=== PATIENT | female | born 1940 | race Caucasian/White ===

== ENCOUNTER 2017-07-12 16:08 | Inpatient (IN) | payer MEDICARE ==
[~2017-07-12] VITALS: Ht 160 cm; Wt 72.8 kg
[2017-07-12 16:15] VITALS: BP 133/78
[2017-07-12] MEDS ORDERED: Sodium Chloride 500ML 500 ML IV ONE (16:40)
[2017-07-12 17:38] LABS: BASOPHILS % (AUTO) 0.8 % (0.0-2.0); EOSINOPHILS % (AUTO) 0.1 % (0.0-3.0); LYMPHOCYTES % (AUTO) 10.4 % (20.0-45.0); MEAN CORPUSCULAR HGB CONC 33.9 G/DL (32.0-36.0); MEAN CORPUSCULAR VOLUME 88 FL (80-99); MEAN PLATELET VOLUME 5.6 FL (6.5-10.1); MONOCYTES % (AUTO) 4.8 % (1.0-10.0); NEUTROPHILS % (AUTO) 83.8 % (45.0-75.0); PLATELET COUNT 222 K/UL (150-450); RED BLOOD COUNT 4.39 M/UL (4.20-5.40); RED CELL DISTRIBUTION WIDTH 19.8 % (11.6-14.8); WHITE BLOOD COUNT 6.6 K/UL (4.8-10.8)
[2017-07-12 17:58] LABS: ALANINE AMINOTRANSFERASE 6 U/L (3-33); ALBUMIN/GLOBULIN RATIO 1.7 (1.0-2.7); ANION GAP 14 (5-15); ASPARTATE AMINO TRANSFERASE 16 U/L (5-40); CALCIUM 9.9 mg/dL (8.6-10.2); CARBON DIOXIDE 30 mEQ/L (20-30); CHLORIDE 96 mEQ/L (98-107); HEMOLYSIS 0; SODIUM 140 mEQ/L (135-145); TOTAL PROTEIN 7.6 g/dL (6.6-8.7); TROPONIN I < 0.30 ng/mL (<=0.30)
[2017-07-12 18:08] LABS: CKMB 3.2 ng/mL (< 3.8)
[2017-07-12 18:30] VITALS: BP 120/70
[2017-07-12] MEDS ORDERED: Miralax 17gm pkt ORAL PRN (18:30)
[2017-07-12] MEDS ORDERED: Albuterol/Ipratropium 3ml neb HHN PRN (18:30)
[2017-07-12] MEDS ORDERED: Promethazine/Codeine 5ml UD ORAL PRN (19:00)
[2017-07-12] MEDS ORDERED: Albuterol/Ipratropium 3ml neb HHN SCH (19:00)
[2017-07-12] MEDS ORDERED: Levalbuterol Inh UD 1.25mg/0.5ml HHN SCH (19:00)
[2017-07-12] MEDS ORDERED: GABAPENTIN300 MG ORAL (19:10)
[2017-07-12] MEDS ORDERED: FUROSEMIDE40 MG ORAL (19:10)
[2017-07-12] MEDS ORDERED: SYNTHROID137 MCG ORAL (19:13)
[2017-07-12] MEDS ORDERED: ZOFRAN ODT8 MG ORAL (19:13)
[2017-07-12] MEDS ORDERED: SILDENAFIL20 MG ORAL (19:13)
[2017-07-12 19:30] VITALS: BP 120/70
[2017-07-12 19:46] LABS: APPEARANCE,URINE CLEAR; KETONES,URINE NEGATIVE (NEGATIVE); LEUKOCYTE ESTERASE ,URINE 1+ (NEGATIVE); NITRITE,URINE NEGATIVE (NEGATIVE); PH,URINE 9 (4.5-8.0); PROTEIN,URINE NEGATIVE (NEGATIVE); UROBILINOGEN,URINE NORMAL MG/DL (0.0-1.0)
[2017-07-12] MEDS: Albuterol/Ipratropium 3ml neb HHN SCH (19:55)
[2017-07-12 20:01] LABS: BACTERIA,URINE FEW /HPF; RBC,URINE 0-2 /HPF (0 - 2); SQUAMOUS EPITHELIAL CELL,UR FEW /LPF (NONE/OCC)
[2017-07-12] MEDS ORDERED: VELETRI IV (20:05)
[2017-07-12] MEDS ORDERED: Milk of Magnesia 30ml Ud ORAL PRN (21:00)
[2017-07-12] MEDS: Docusate 100mg cap ORAL SCH (21:00)
[2017-07-12 21:15] VITALS: BP 154/94
[2017-07-12] MEDS: Theophylline ER 100mg ORAL SCH (22:13)
[2017-07-12] MEDS: Heparin 5000 units/ml inj SUBQ SCH (22:13)
--- NOTE | 2017-07-12 22:33 | Emergency Room Report ---
History of Present Illness General Chief Complaint: Dyspnea/Respdistress Source: Patient, EMS Present Illness HPI 77-year-old female presents ED complaining of shortness of breath. Patient 911 from parking lot stating she was short of breath. Patient is on home oxygen for pulmonary hypertension. Per EMS O2 sats were low on 4 L nasal cannula. Upon arrival patient is 100% O2. Patient states she does feel better at this time. Denied any chest pain. Denies any fevers or chills. Denies cough. No other aggravating relieving factors. Denies any other associated symptoms Allergies: Coded Allergies: No Known Allergies (Unverified , 07/12/17) Patient History Past Medical History: HTN, other - pulmonary hypertension Past Surgical History: none Pertinent Family History: none Social History: Denies: smoking, alcohol use, drug use Now: No Immunizations: UTD Reviewed Nursing Documentation: PMH: Agreed, PSxH: Agreed Nursing Documentation-PMH Past Medical History: No History, Except For Hx Hypertension: Yes Hx COPD: Yes - PULMONARY HYPERTENSION Review of Systems All Other Systems: negative except mentioned in HPI Physical Exam Vital Signs Date Time Temp Pulse Resp B/P (MAP) Pulse Ox O2 Delivery O2 Flow Rate FiO2 07/12/17 16:01 97.9 78 16 143/84 99 Room Air 07/12/17 16:15 4.0 07/12/17 19:54 36 Sp02 EP Interpretation: reviewed, normal General Appearance: no apparent distress, alert, GCS 15, non-toxic Head: normocephalic, atraumatic Eyes: bilateral eye normal inspection, bilateral eye PERRL ENT: hearing grossly normal, normal pharynx, no angioedema, normal voice Neck: full range of motion, supple/symm/no masses Respiratory: chest non-tender, lungs clear, normal breath sounds, speaking full sentences Cardiovascular #1: regular rate, rhythm, no edema Cardiovascular #2: 2+ carotid (R), 2+ carotid (L), 2+ radial (R), 2+ radial (L) , 2+ dorsalis pedis (R), 2+ dorsalis pedis (L) Gastrointestinal: normal bowel sounds, non tender, soft, non-distended, no guarding, no rebound Rectal: deferred Genitourinary: normal inspection, no CVA tenderness Musculoskeletal: back normal, gait/station normal, normal range of motion, non- tender Neurologic: alert, oriented x3, responsive, motor strength/tone normal, sensory intact, speech normal Psychiatric: judgement/insight normal, memory normal, mood/affect normal, no suicidal/homicidal ideation Reflexes: 3+ bicep (R), 3+ bicep (L), 3+ tricep (R), 3+ tricep (L), 3+ knee (R) , 3+ knee (L) Skin: normal color, no rash, warm/dry, well hydrated Lymphatic: no adenopathy Medical Decision Making Diagnostic Impression: Primary Impression: SOB (shortness of breath) Additional Impression: Pulmonary hypertension ER Course Hospital Course 77-year-old F presenting to ED with SOB. h/o pulmoanry hypertension Differential diagnoses include: Pneumonia, CHF exacerbation, pneumothorax, fluid overload Clinical course Patient placed on stretcher. On cardiac cath rn with stable vitals. After initial history and physical, I ordered labs, IV fluids, EKG, chest x-ray, blood cultures, UA. Labs - no leukocytosis noted, hemoglobin/hematocrit stable, electrolytes okay, lactate okay, troponins negative CXR - bibasilar atelectasis EKG - NSR, no acute changes interpreted by me abx given Case discussed with Dr. Romano and he agreed to the patient to his service for further care and support I feel this is a highly complex case requiring extensive working including EKG/ Rhythm strip, Xray/CT/US, Blood/urine lab work, repeat exams while in ED, and administration of strong opiates/narcotics for pain control, admission to hospital or close patient follow up. Diagnosis - SOB, pulmonary hypertension Patient admitted to telemetry in serious condition Labs Test 07/12/17 17:00 07/12/17 19:28 White Blood Count 6.6 K/UL (4.8-10.8) Red Blood Count 4.39 M/UL (4.20-5.40) Hemoglobin 13.2 G/DL (12.0-16.0) Hematocrit 38.8 % (37.0-47.0) Mean Corpuscular Volume 88 FL (80-99) Mean Corpuscular Hemoglobin 30.0 PG (27.0-31.0) Mean Corpuscular Hemoglobin Concent 33.9 G/DL (32.0-36.0) Red Cell Distribution Width 19.8 % (11.6-14.8) Platelet Count 222 K/UL (150-450) Mean Platelet Volume 5.6 FL (6.5-10.1) Neutrophils (%) (Auto) 83.8 % (45.0-75.0) Lymphocytes (%) (Auto) 10.4 % (20.0-45.0) Monocytes (%) (Auto) 4.8 % (1.0-10.0) Eosinophils (%) (Auto) 0.1 % (0.0-3.0) Basophils (%) (Auto) 0.8 % (0.0-2.0) Sodium Level 140 mEQ/L (135-145) Potassium Level 3.0 mEQ/L (3.4-4.9) Chloride Level 96 mEQ/L (98-107) Carbon Dioxide Level 30 mEQ/L (20-30) Anion Gap 14 (5-15) Blood Urea Nitrogen 17 mg/dL (7-23) Creatinine 1.0 mg/dL (0.5-0.9) Estimat Glomerular Filtration Rate mL/min (>60) Glucose Level 98 mg/dL (74-106) Lactic Acid Level 0.90 mmol/L (0.66-2.22) Calcium Level 9.9 mg/dL (8.6-10.2) Total Bilirubin 0.7 mg/dL (0.0-1.2) Aspartate Amino Transf (AST/SGOT) 16 U/L (5-40) Alanine Aminotransferase (ALT/SGPT) 6 U/L (3-33) Alkaline Phosphatase 82 U/L (35-104) Total Creatine Kinase 148 U/L (26-140) Creatine Kinase MB 3.2 ng/mL (< 3.8) Creatine Kinase MB Relative Index 2.1 Troponin I < 0.30 ng/mL (<=0.30) Pro-B-Type Natriuretic Peptide 345 pg/mL (0-450) Total Protein 7.6 g/dL (6.6-8.7) Albumin 4.8 g/dL (3.5-5.2) Globulin 2.8 g/dL Albumin/Globulin Ratio 1.7 (1.0-2.7) Urine Color Pale yellow Urine Appearance Clear Urine pH 9 (4.5-8.0) Urine Specific [place] 1.015 (1.005-1.035) Urine Protein Negative (NEGATIVE) Urine Glucose (UA) Negative (NEGATIVE) Urine Ketones Negative (NEGATIVE) Urine Occult Blood Negative (NEGATIVE) Urine Nitrite Negative (NEGATIVE) Urine Bilirubin Negative (NEGATIVE) Urine Urobilinogen Normal MG/DL (0.0-1.0) Urine Leukocyte Esterase 1+ (NEGATIVE) Urine RBC 0-2 /HPF (0 - 2) Urine WBC 2-4 /HPF (0 - 2) Urine Squamous Epithelial Cells Few /LPF (NONE/OCC) Urine Bacteria Few /HPF (NONE) EKG Diagnostic Results Rate: normal Rhythm: NSR ST Segments: no acute changes ASA given to the pt in ED: No Rhythm Strip Diag. Results EP Interpretation: yes Rhythm: NSR, no PVC's, no ectopy Chest X-Ray Diagnostic Results Chest X-Ray Diagnostic Results : Chest X-Ray Ordered: Yes # of Views/Limited/Complete: 1 View Indication: Shortness of Breath EP Interpretation: Yes Interpretation: no consolidation, no pneumothorax, no acute cardiopulmonary disease, other - bilateral basilar atelectasis Impression: Other - ? consolidation Electronically Signed by: Electronically signed by Alvin Gallagher MD Last Vital Signs Date Time Temp Pulse Resp B/P (MAP) Pulse Ox O2 Delivery O2 Flow Rate FiO2 07/12/17 20:05 90 19 98 Nasal Cannula 4.0 36 07/12/17 18:30 98.0 120/70 Status: improved Disposition: ADMITTED INPATIENT Condition: Serious Referrals: NON PHYSICIAN (PCP) ALVIN GALLAGHER M.D. Jul 12, 2017 22:33
[2017-07-12] MEDS: Piperacillin/Tazobactam 3.375 GM in NS 110 ML IVPB SCH (22:39)
[2017-07-13] VITALS (7 sets, daily range): BP systolic 115–153; BP diastolic 59–88
[2017-07-13] MEDS: Albuterol/Ipratropium 3ml neb HHN SCH ×4 (01:00→19:25)
[2017-07-13] MEDS: Piperacillin/Tazobactam 3.375 GM in NS 110 ML IVPB SCH ×3 (05:45→22:30)
[2017-07-13 06:09] LABS: BASOPHILS % (AUTO) 1.2 % (0.0-2.0); LYMPHOCYTES % (AUTO) 15.1 % (20.0-45.0); MEAN CORPUSCULAR HEMOGLOBIN 29.1 PG (27.0-31.0); MEAN CORPUSCULAR HGB CONC 32.3 G/DL (32.0-36.0); MEAN CORPUSCULAR VOLUME 90 FL (80-99); MEAN PLATELET VOLUME 5.4 FL (6.5-10.1); MONOCYTES % (AUTO) 8.4 % (1.0-10.0); NEUTROPHILS % (AUTO) 75.3 % (45.0-75.0); PLATELET COUNT 205 K/UL (150-450); RED BLOOD COUNT 3.59 M/UL (4.20-5.40); RED CELL DISTRIBUTION WIDTH 19.2 % (11.6-14.8); WHITE BLOOD COUNT 5.6 K/UL (4.8-10.8)
[2017-07-13 06:34] LABS: ANION GAP 11 (5-15); CALCIUM 8.2 mg/dL (8.6-10.2); CARBON DIOXIDE 30 mEQ/L (20-30); CHLORIDE 101 mEQ/L (98-107); CREATININE 0.9 mg/dL (0.5-0.9); HEMOLYSIS 4; MAGNESIUM 1.5 mg/dL (1.7-2.5); POTASSIUM 3.3 mEQ/L (3.4-4.9); SODIUM 142 mEQ/L (135-145)
--- NOTE | 2017-07-13 06:37 | History and Physical ---
History of Present Illness General Date patient seen: Jul 12, 2017 Time patient seen: 16:00 Reason for Hospitalization: Dyspnea/Respdistress Present Illness HPI 77 yo female with pmh of pulmonary HTN on 4L O2 via NC, hypothyroidism who presents with acute onset SOB. Pt states she had an appt with her pulm HTN Dr. Vila at [facility] today. She was walking in parking lot when she suddenly felt SOB and passed out. She has had this happen a few times before and they said it was related to her pulmonary HTN. No reports of head trauma, chest pain, f/c, n/v, d /c, abd pain, cough. No recent sick contacts, trauma or travel. Per EMS O2 dropped on her usual 4 L nasal cannula. Pt states pulm HTN diagnosed in Oct 2016 and she had cardiac cath at the time. She has been under the care of Dr. Vila In ED, pt on 100% NRB satting well. SOB improved. No fever. Labs showed no leukocytosis. CXR w/ no obvious infiltrate. BNP and trop unremarkable. Pt given levaquin and 500mL NS bolus in ED. Allergies: Coded Allergies: No Known Allergies (Unverified , 07/12/17) Medication History Scheduled Furosemide* (Lasix*), 40 MG ORAL DAILY, (Reported) Gabapentin* (Gabapentin*), 300 MG ORAL BEDTIME, (Reported) Levothyroxine Sodium (Synthroid), 137 MCG ORAL DAILY, (Reported) Scheduled PRN Ondansetron Odt* (Zofran Odt*), 8 MG ORAL Q6H PRN for Nausea & Vomiting, ( Reported) Miscellaneous Medications Epoprostenol Sodium (Arginine) (Veletri 0.5 Mg Vial), 0.5 MG IV, (Reported) Sildenafil Citrate (Sildenafil), 20 MG ORAL, (Reported) Patient History Healthcare decision maker N Resuscitation status Full Code Advanced Directive on File No Patient History Narrative 1. Severe pulmonary arterial hypertension ( WHO group 1), probably idiopathic, rule out any PAH associated diseases and doubt any Significant contribution of left heart disease in this patient with a history of HTN and hyperlipidemia. WHO group 1, WHO FC IIIB 2. Moderate to severe right ventricular dilatation and dysfunction with moderate to severe tricuspid regurgitation. 3. History of previous pleural effusions requiring right VATS surgery and pleural biopsy on February 24, 2016, the pathology of which showed reactive mesothelial cells and scattered inflammatory cells without malignancy and with a negative culture. 4. Longstanding history of systemic hypertension, treated and well controlled. 5. Hyperlipidemia, known since 1994, treated. 6. History of hypothyroidism, on replacement therapy. 7. 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 Past Medical/Surgical History Past Medical/Surgical History: (1) Hypothyroidism (2) Pulmonary hypertension (3) CVA in 2008 (4) Inguinal and umbilical hernia Review of Systems Constitutional: Reports: no symptoms Eye: Reports: no symptoms ENT: Reports: no symptoms Respiratory: Reports: shortness of breath Cardiovascular: Reports: no symptoms Gastrointestinal: Reports: no symptoms Genitourinary: Reports: no symptoms Musculoskeletal: Reports: no symptoms Skin: Reports: no symptoms Psychiatric: Reports: no symptoms Neurological: Reports: no symptoms Endocrine: Reports: no symptoms Hematologic/Lymphatic: Reports: no symptoms Physical Exam Physical Exam Narrative General: alert, cooperative, no distress, appears stated age Head: normocephalic, without obvious abnormality, atraumatic Eyes: conjunctivae/corneas clear. PERRL, EOM's intact Throat: lips, mucosa, and tongue normal. MMM Neck: supple, symmetrical, trachea midline, and +JVD Lungs: decreased breath sounds b/l Heart: regular rate and rhythm, S1, S2 normal, no murmur, click, rub or gallop Abdomen: soft, non-tender, non-distended, bowel sounds normal; Small umbilical hernia and moderate size right inguinal hernia Extremities: extremities normal, atraumatic, no cyanosis, 1+ pitting edema BLE below knees Pulses: 2+ and symmetric Skin: skin color, texture, turgor normal; no rashes or lesions Neurologic: grossly normal, no focal deficits Last 24 Hour Vital Signs Date Time Temp Pulse Resp B/P (MAP) Pulse Ox O2 Delivery O2 Flow Rate FiO2 07/13/17 06:12 88 20 93 Nasal Cannula 4.0 36 07/13/17 05:59 96 24 88 Nasal Cannula 4.0 36 07/13/17 04:00 98.2 92 18 115/59 96 Nasal Cannula 4.0 07/13/17 03:47 93 07/13/17 01:55 84 18 92 Nasal Cannula 4.0 36 07/13/17 01:44 94 20 88 Nasal Cannula 4.0 36 07/13/17 00:00 94 07/13/17 00:00 98.1 103 18 120/66 92 Nasal Cannula 4.0 07/12/17 21:15 97.3 100 18 154/94 90 Nasal Cannula 4.0 07/12/17 20:05 90 19 98 Nasal Cannula 4.0 36 07/12/17 19:55 Nasal Cannula 4.0 36 07/12/17 19:55 96 Nasal Cannula 4.0 36 07/12/17 19:54 87 18 Nasal Cannula 4.0 36 07/12/17 19:54 87 18 96 Nasal Cannula 4.0 36 07/12/17 19:30 98.0 69 17 120/70 99 Nasal Cannula 4.0 07/12/17 18:30 98.0 85 22 120/70 97 Nasal Cannula 4.0 07/12/17 16:15 98.0 80 18 133/78 99 Nasal Cannula 4.0 07/12/17 16:15 80 18 Nasal Cannula 4.0 07/12/17 16:01 97.9 78 16 143/84 99 Room Air Laboratory Tests Test 07/12/17 17:00 07/12/17 19:28 07/13/17 05:14 White Blood Count 6.6 K/UL (4.8-10.8) 5.6 K/UL (4.8-10.8) Red Blood Count 4.39 M/UL (4.20-5.40) 3.59 M/UL (4.20-5.40) L Hemoglobin 13.2 G/DL (12.0-16.0) 10.4 G/DL (12.0-16.0) L Hematocrit 38.8 % (37.0-47.0) 32.3 % (37.0-47.0) L Mean Corpuscular Volume 88 FL (80-99) 90 FL (80-99) Mean Corpuscular Hemoglobin 30.0 PG (27.0-31.0) 29.1 PG (27.0-31.0) Mean Corpuscular Hemoglobin Concent 33.9 G/DL (32.0-36.0) 32.3 G/DL (32.0-36.0) Red Cell Distribution Width 19.8 % (11.6-14.8) H 19.2 % (11.6-14.8) H Platelet Count 222 K/UL (150-450) 205 K/UL (150-450) Mean Platelet Volume 5.6 FL (6.5-10.1) L 5.4 FL (6.5-10.1) L Neutrophils (%) (Auto) 83.8 % (45.0-75.0) H 75.3 % (45.0-75.0) H Lymphocytes (%) (Auto) 10.4 % (20.0-45.0) L 15.1 % (20.0-45.0) L Monocytes (%) (Auto) 4.8 % (1.0-10.0) 8.4 % (1.0-10.0) Eosinophils (%) (Auto) 0.1 % (0.0-3.0) 0.0 % (0.0-3.0) Basophils (%) (Auto) 0.8 % (0.0-2.0) 1.2 % (0.0-2.0) Sodium Level 140 mEQ/L (135-145) Pending Potassium Level 3.0 mEQ/L (3.4-4.9) L Pending Chloride Level 96 mEQ/L (98-107) L Pending Carbon Dioxide Level 30 mEQ/L (20-30) Pending Anion Gap 14 (5-15) Blood Urea Nitrogen 17 mg/dL (7-23) Pending Creatinine 1.0 mg/dL (0.5-0.9) H Pending Estimat Glomerular Filtration Rate mL/min (>60) Pending Glucose Level 98 mg/dL (74-106) Pending Lactic Acid Level 0.90 mmol/L (0.66-2.22) Calcium Level 9.9 mg/dL (8.6-10.2) Pending Total Bilirubin 0.7 mg/dL (0.0-1.2) Aspartate Amino Transf (AST/SGOT) 16 U/L (5-40) Alanine Aminotransferase (ALT/SGPT) 6 U/L (3-33) Alkaline Phosphatase 82 U/L (35-104) Total Creatine Kinase 148 U/L (26-140) H Creatine Kinase MB 3.2 ng/mL (< 3.8) Creatine Kinase MB Relative Index 2.1 Troponin I < 0.30 ng/mL (<=0.30) Pro-B-Type Natriuretic Peptide 345 pg/mL (0-450) Total Protein 7.6 g/dL (6.6-8.7) Albumin 4.8 g/dL (3.5-5.2) Globulin 2.8 g/dL Albumin/Globulin Ratio 1.7 (1.0-2.7) Urine Color Pale yellow Urine Appearance Clear Urine pH 9 (4.5-8.0) Urine Specific [place] 1.015 (1.005-1.035) Urine Protein Negative (NEGATIVE) Urine Glucose (UA) Negative (NEGATIVE) Urine Ketones Negative (NEGATIVE) Urine Occult Blood Negative (NEGATIVE) Urine Nitrite Negative (NEGATIVE) Urine Bilirubin Negative (NEGATIVE) Urine Urobilinogen Normal MG/DL (0.0-1.0) Urine Leukocyte Esterase 1+ (NEGATIVE) H Urine RBC 0-2 /HPF (0 - 2) Urine WBC 2-4 /HPF (0 - 2) Urine Squamous Epithelial Cells Few /LPF (NONE/OCC) Urine Bacteria Few /HPF (NONE) Magnesium Level Pending Thyroid Stimulating Hormone (TSH) Pending Height (Feet): 5 Height (Inches): 3.00 Weight (Pounds): 130 Medications Current Medications Medications (Trade) Dose Ordered Sig/Maryann Route PRN Reason Start Time Stop Time Status Last Admin Dose Admin Acetaminophen (Tylenol) 650 mg Q4H PRN ORAL Mild Pain (Pain Scale 1-3) 07/12/17 18:30 08/11/17 18:29 Albuterol/ Ipratropium (DuoNeb 0.5-3(2.5)mg/3ml) 3 ml Q4H PRN HHN Shortness of Breath 07/12/17 18:30 07/17/17 18:29 Albuterol/ Ipratropium (DuoNeb 0.5-3(2.5)mg/3ml) 3 ml Q6HRT HHN 07/12/17 19:00 07/17/17 18:59 07/13/17 06:00 Bisacodyl (Dulcolax) 10 mg DAILYPRN PRN RECTAL Constipation 07/12/17 18:30 08/11/17 18:29 Dextrose (Dextrose 50%) STAT PRN IV Hypoglycemia 07/12/17 18:30 08/11/17 18:29 Docusate Sodium (Colace) 100 mg EVERY 12 HOURS ORAL 07/12/17 21:00 08/11/17 20:59 Heparin Sodium (Porcine) (Heparin 5000 units/ml) 5,000 units EVERY 12 HOURS SUBQ 07/12/17 21:00 08/11/17 20:59 07/12/17 22:13 Magnesium Hydroxide (Mom) 30 ml HSPRN PRN ORAL Constipation 07/12/17 21:00 08/11/17 20:59 Ondansetron HCl (Zofran) 4 mg Q6H PRN IVP Nausea & Vomiting 07/12/17 18:30 08/11/17 18:29 Piperacillin Sod/ Tazobactam Sod 3.375 gm/Sodium Chloride 110 ml @ 27.5 mls/hr EVERY 8 HOURS IVPB 07/12/17 22:00 07/19/17 21:59 07/13/17 05:45 Polyethylene Glycol (Miralax) 17 gm DAILYPRN PRN ORAL Constipation 07/12/17 18:30 08/11/17 18:29 Promethazine HCl/ Codeine (Phenergan with Codeine) 5 ml Q4H PRN ORAL For Cough 07/12/17 19:00 08/11/17 18:59 Theophylline (Nghia-Dur) 100 mg EVERY 12 HOURS ORAL 07/12/17 21:00 08/11/17 20:59 07/12/17 22:13 Assessment/Plan Problem List: (1) Acute and chronic respiratory failure with hypoxia ICD Codes: J96.21 - Acute and chronic respiratory failure with hypoxia SNOMED: 462661644, 678336834 (2) Syncope ICD Codes: R55 - Syncope and collapse SNOMED: 437628532 (3) Pulmonary hypertension Assessment & Plan: Severe, WHO group 1 ICD Codes: I27.2 - Other secondary pulmonary hypertension SNOMED: 65596463 (4) Hypothyroidism ICD Codes: E03.9 - Hypothyroidism, unspecified SNOMED: 62948380 Status: stable Assessment/Plan Admit to tele Pulmonology and cardiology consulted Empiric zosyn Consider further imaging Check TTE, BLE duplex Cont home meds including pt's Epoprostenol via PICC O2 via NC Duonebs PRN Chest PT Pain control, supportive care, bowel regimen DVT Prophylaxis: SCD, HSQ Code Status: Full Hospital Classification Declaration: Based on this initial evaluation, and depending on the patient's clinical course, I anticipate that this patient will require hospitalization for 2-3 days for SOB, syncope and close respiratory/ hemodynamic monitoring. Disposition: Once the patient is stable to leave the hospital, I anticipate the patient will likely be discharged to the following environment: home with vs SNF I spent 72 minutes on this patient's case, and 40 minutes were dedicated to counseling and/or care coordination. Discussed with patient/family, nursing staff, SW/CM, pulmonology regarding clinical status, treatment course, and disposition planning. Time of note may not reflect time of encounter. Reyna Russell M.D. Jul 13, 2017 06:37
[2017-07-13] MEDS: Docusate 100mg cap ORAL SCH ×2 (09:00→21:00)
--- NOTE | 2017-07-13 09:05 | Consultation ---
History of Present Illness General Date patient seen: Jul 13, 2017 Time patient seen: 08:00 Chief Complaint: Dyspnea/Respdistress Referring physician: dr Ruiz Reason for Consultation: pulmonary consult Present Illness HPI 77 y/old female with PMH of pulmonary HTN, COPD, HTN, hypothyroidism, hx of CVA presented to ED complaining of shortness of breath. Patient was called 911 from parking lot stating she was short of breath. Patient is chronically oxygen dependent at home for pulmonary hypertension. Per EMS pulse oximetry was low on 4 L nasal cannula. Upon arrival sat was 100% Patient stated she did not feel better at that time. Denied any chest pain. Denied any fevers or chills. Denied cough, wheezing, chest tightness. Workup in ED revealed no leukocytosis hemoglobin/hematocrit stable, electrolytes stable , lactate WNL, troponin negative CXR with bibasilar atelectasis EKG - NSR, no acute changes Patient was admitted for further management Allergies: Coded Allergies: No Known Allergies (Unverified , 07/12/17) Medication History Scheduled Furosemide* (Lasix*), 40 MG ORAL DAILY, (Reported) Gabapentin* (Gabapentin*), 300 MG ORAL BEDTIME, (Reported) Levothyroxine Sodium (Synthroid), 137 MCG ORAL DAILY, (Reported) Scheduled PRN Ondansetron Odt* (Zofran Odt*), 8 MG ORAL Q6H PRN for Nausea & Vomiting, ( Reported) Miscellaneous Medications Epoprostenol Sodium (Arginine) (Veletri 0.5 Mg Vial), 0.5 MG IV, (Reported) Sildenafil Citrate (Sildenafil), 20 MG ORAL, (Reported) Patient History History Provided By: Patient Healthcare decision maker Resuscitation status Full Code Advanced Directive on File No Past Medical/Surgical History Past Medical/Surgical History: (1) HTN (hypertension) (2) Hypothyroidism (3) Pulmonary hypertension (4) CVA in 2007 (5) COPD (chronic obstructive pulmonary disease) Review of Systems Constitutional: Reports: weakness Eye: Reports: no symptoms ENT: Reports: no symptoms Respiratory: Reports: see HPI Cardiovascular: Reports: other - HTN Gastrointestinal: Reports: no symptoms Genitourinary: Reports: no symptoms Musculoskeletal: Reports: no symptoms Skin: Reports: no symptoms Psychiatric: Reports: no symptoms Neurological: Reports: other - hx of CVA Endocrine: Reports: other - hypothyroidism Hematologic/Lymphatic: Reports: no symptoms Physical Exam General Appearance: no apparent distress, alert Lines, tubes and drains: PICC - RUE intact HEENT: normocephalic, atraumatic, anicteric, mucous membranes moist, PERRL Neck: non-tender, supple Respiratory/Chest: lungs clear - with moderate air exchange Cardiovascular/Chest: normal peripheral pulses, normal rate, no JVD, other - trace edema BLE Abdomen: normal bowel sounds, non tender, soft Extremities: normal range of motion, non-tender, no calf tenderness, normal capillary refill Skin Exam: normal pigmentation, warm/dry Neurologic: no motor/sensory deficits, alert, oriented x 3, responsive Musculoskeletal: normal muscle bulk Last 24 Hour Vital Signs Date Time Temp Pulse Resp B/P (MAP) Pulse Ox O2 Delivery O2 Flow Rate FiO2 07/13/17 06:12 88 20 93 Nasal Cannula 4.0 36 07/13/17 05:59 96 24 88 Nasal Cannula 4.0 36 07/13/17 04:00 98.2 92 18 115/59 96 Nasal Cannula 4.0 07/13/17 03:47 93 07/13/17 01:55 84 18 92 Nasal Cannula 4.0 36 07/13/17 01:44 94 20 88 Nasal Cannula 4.0 36 07/13/17 00:00 94 07/13/17 00:00 98.1 103 18 120/66 92 Nasal Cannula 4.0 07/12/17 21:15 97.3 100 18 154/94 90 Nasal Cannula 4.0 07/12/17 20:48 98.0 69 19 120/70 98 Nasal Cannula 4.0 36 07/12/17 20:05 90 19 98 Nasal Cannula 4.0 36 07/12/17 19:55 Nasal Cannula 4.0 36 07/12/17 19:55 96 Nasal Cannula 4.0 36 07/12/17 19:54 87 18 Nasal Cannula 4.0 36 07/12/17 19:54 87 18 96 Nasal Cannula 4.0 36 07/12/17 19:30 98.0 69 17 120/70 99 Nasal Cannula 4.0 07/12/17 18:30 98.0 85 22 120/70 97 Nasal Cannula 4.0 07/12/17 16:15 98.0 80 18 133/78 99 Nasal Cannula 4.0 07/12/17 16:15 80 18 Nasal Cannula 4.0 07/12/17 16:01 97.9 78 16 143/84 99 Room Air Laboratory Tests Test 07/12/17 17:00 07/12/17 19:28 07/13/17 05:14 White Blood Count 6.6 K/UL (4.8-10.8) 5.6 K/UL (4.8-10.8) Red Blood Count 4.39 M/UL (4.20-5.40) 3.59 M/UL (4.20-5.40) L Hemoglobin 13.2 G/DL (12.0-16.0) 10.4 G/DL (12.0-16.0) L Hematocrit 38.8 % (37.0-47.0) 32.3 % (37.0-47.0) L Mean Corpuscular Volume 88 FL (80-99) 90 FL (80-99) Mean Corpuscular Hemoglobin 30.0 PG (27.0-31.0) 29.1 PG (27.0-31.0) Mean Corpuscular Hemoglobin Concent 33.9 G/DL (32.0-36.0) 32.3 G/DL (32.0-36.0) Red Cell Distribution Width 19.8 % (11.6-14.8) H 19.2 % (11.6-14.8) H Platelet Count 222 K/UL (150-450) 205 K/UL (150-450) Mean Platelet Volume 5.6 FL (6.5-10.1) L 5.4 FL (6.5-10.1) L Neutrophils (%) (Auto) 83.8 % (45.0-75.0) H 75.3 % (45.0-75.0) H Lymphocytes (%) (Auto) 10.4 % (20.0-45.0) L 15.1 % (20.0-45.0) L Monocytes (%) (Auto) 4.8 % (1.0-10.0) 8.4 % (1.0-10.0) Eosinophils (%) (Auto) 0.1 % (0.0-3.0) 0.0 % (0.0-3.0) Basophils (%) (Auto) 0.8 % (0.0-2.0) 1.2 % (0.0-2.0) Sodium Level 140 mEQ/L (135-145) 142 mEQ/L (135-145) Potassium Level 3.0 mEQ/L (3.4-4.9) L 3.3 mEQ/L (3.4-4.9) L Chloride Level 96 mEQ/L (98-107) L 101 mEQ/L (98-107) Carbon Dioxide Level 30 mEQ/L (20-30) 30 mEQ/L (20-30) Anion Gap 14 (5-15) 11 (5-15) Blood Urea Nitrogen 17 mg/dL (7-23) 18 mg/dL (7-23) Creatinine 1.0 mg/dL (0.5-0.9) H 0.9 mg/dL (0.5-0.9) Estimat Glomerular Filtration Rate mL/min (>60) mL/min (>60) Glucose Level 98 mg/dL (74-106) 85 mg/dL (74-106) Lactic Acid Level 0.90 mmol/L (0.66-2.22) Calcium Level 9.9 mg/dL (8.6-10.2) 8.2 mg/dL (8.6-10.2) L Total Bilirubin 0.7 mg/dL (0.0-1.2) Aspartate Amino Transf (AST/SGOT) 16 U/L (5-40) Alanine Aminotransferase (ALT/SGPT) 6 U/L (3-33) Alkaline Phosphatase 82 U/L (35-104) Total Creatine Kinase 148 U/L (26-140) H Creatine Kinase MB 3.2 ng/mL (< 3.8) Creatine Kinase MB Relative Index 2.1 Troponin I < 0.30 ng/mL (<=0.30) Pro-B-Type Natriuretic Peptide 345 pg/mL (0-450) Total Protein 7.6 g/dL (6.6-8.7) Albumin 4.8 g/dL (3.5-5.2) Globulin 2.8 g/dL Albumin/Globulin Ratio 1.7 (1.0-2.7) Urine Color Pale yellow Urine Appearance Clear Urine pH 9 (4.5-8.0) Urine Specific [place] 1.015 (1.005-1.035) Urine Protein Negative (NEGATIVE) Urine Glucose (UA) Negative (NEGATIVE) Urine Ketones Negative (NEGATIVE) Urine Occult Blood Negative (NEGATIVE) Urine Nitrite Negative (NEGATIVE) Urine Bilirubin Negative (NEGATIVE) Urine Urobilinogen Normal MG/DL (0.0-1.0) Urine Leukocyte Esterase 1+ (NEGATIVE) H Urine RBC 0-2 /HPF (0 - 2) Urine WBC 2-4 /HPF (0 - 2) Urine Squamous Epithelial Cells Few /LPF (NONE/OCC) Urine Bacteria Few /HPF (NONE) Magnesium Level 1.5 mg/dL (1.7-2.5) L Thyroid Stimulating Hormone (TSH) 9.030 uIU/mL (0.300-4.500) Height (Feet): 5 Height (Inches): 3.00 Weight (Pounds): 130 Medications Current Medications Medications (Trade) Dose Ordered Sig/Maryann Route PRN Reason Start Time Stop Time Status Last Admin Dose Admin Acetaminophen (Tylenol) 650 mg Q4H PRN ORAL Mild Pain (Pain Scale 1-3) 07/12/17 18:30 08/11/17 18:29 Albuterol/ Ipratropium (DuoNeb 0.5-3(2.5)mg/3ml) 3 ml Q4H PRN HHN Shortness of Breath 07/12/17 18:30 07/17/17 18:29 Albuterol/ Ipratropium (DuoNeb 0.5-3(2.5)mg/3ml) 3 ml Q6HRT HHN 07/12/17 19:00 07/17/17 18:59 07/13/17 06:00 Bisacodyl (Dulcolax) 10 mg DAILYPRN PRN RECTAL Constipation 07/12/17 18:30 08/11/17 18:29 Dextrose (Dextrose 50%) STAT PRN IV Hypoglycemia 07/12/17 18:30 08/11/17 18:29 Docusate Sodium (Colace) 100 mg EVERY 12 HOURS ORAL 07/12/17 21:00 08/11/17 20:59 Furosemide (Lasix) 40 mg BID ORAL 07/13/17 09:00 08/12/17 08:59 Heparin Sodium (Porcine) (Heparin 5000 units/ml) 5,000 units EVERY 12 HOURS SUBQ 07/12/17 21:00 08/11/17 20:59 07/12/17 22:13 Levothyroxine Sodium (Synthroid) 112 mcg DAILY@0630 ORAL 07/14/17 06:30 08/13/17 06:29 Magnesium Hydroxide (Mom) 30 ml HSPRN PRN ORAL Constipation 07/12/17 21:00 08/11/17 20:59 Magnesium Sulfate 100 ml @ 100 mls/hr Q1H IVPB 07/13/17 07:30 07/13/17 10:29 07/13/17 07:58 Non-Formulary Medication (Non-Formulary Med) 1 ea DAILY ORAL 07/13/17 09:00 08/12/17 08:59 UNV Ondansetron HCl (Zofran) 4 mg Q6H PRN IVP Nausea & Vomiting 07/12/17 18:30 08/11/17 18:29 Piperacillin Sod/ Tazobactam Sod 3.375 gm/Sodium Chloride 110 ml @ 27.5 mls/hr EVERY 8 HOURS IVPB 07/12/17 22:00 07/19/17 21:59 07/13/17 05:45 Polyethylene Glycol (Miralax) 17 gm DAILYPRN PRN ORAL Constipation 07/12/17 18:30 08/11/17 18:29 Promethazine HCl/ Codeine (Phenergan with Codeine) 5 ml Q4H PRN ORAL For Cough 07/12/17 19:00 08/11/17 18:59 Sildenafil Citrate (Revatio) 20 mg TID ORAL 07/13/17 09:00 08/12/17 08:59 Theophylline (Nghia-Dur) 100 mg EVERY 12 HOURS ORAL 07/12/17 21:00 08/11/17 20:59 07/12/17 22:13 Assessment/Plan Assessment/Plan ASSESSMENT acute on chronic hypoxemic respiratory failure chronic hypoxemia with O2 dependency pulmonary HTN possible PNA hypothyroidism with elevated TSH hypo Mg anemia HTN PLAN OF CARE tele O2 to keep sat above 92% HHN and CPT induce sputum empiric abx fup with CXR a/tussive prn DVT prophylaxis Venous Duplex BLE IS at the bedside, encourage to use check 2 D Echo for severity of pulmonary HTN continue Epoprostenol and Sildenafil diuretic, monitor renal paramters CT chest in am elevated TSH, increased dose of levothyroxine by PMD Mg replacement monitor HH , watch for trend down pain management monitor BP bowel regimen supportive care case discussed and evaluated by supervising physician Leonard (Keena),Moira LAI Jul 13, 2017 09:05
[2017-07-13] MEDS: Furosemide 40mg tab ORAL SCH ×2 (09:17→17:36)
[2017-07-13] MEDS: Theophylline ER 100mg ORAL SCH (09:19)
[2017-07-13] MEDS: Heparin 5000 units/ml inj SUBQ SCH ×2 (09:21→22:32)
--- NOTE | 2017-07-13 10:00 | Diagnostic Imaging Report ---
Indication: SOB Technique: One view of the chest Comparison: None Findings: There are bilateral pleural effusions, right greater than left. There is mild bilateral interstitial congestion. There is a right arm catheter, tip projecting at level of the right innominate vein. The heart is upper limits normal in size. Impression: Evidence of congestive heart failure, with mild interstitial congestion and bilateral pleural effusions Right arm catheter
[2017-07-13] MEDS: Revatio 20mg tab ORAL SCH ×3 (10:06→17:36)
--- NOTE | 2017-07-13 12:52 | Cardiology Report ---
APPROVED REPORT EKG Measurement Heart [id number] Normal sinus rhythm Rightward axis Nonspecific T wave abnormality Abnormal ECG
[2017-07-13] MEDS ORDERED: Tubing IV Secondary IV ONE (14:29)
[2017-07-13] MEDS ORDERED: NS 275ml ONE (14:29)
--- NOTE | 2017-07-13 17:19 | Cardiac Electrophysiology PN ---
Subjective Subjective [id number] Objective Last 24 Hour Vital Signs Date Time Temp Pulse Resp B/P (MAP) Pulse Ox O2 Delivery O2 Flow Rate FiO2 07/13/17 16:00 97.7 58 20 151/88 100 Nasal Cannula 4.0 07/13/17 16:00 102 07/13/17 13:23 84 20 92 Nasal Cannula 4.0 07/13/17 13:15 88 18 91 Nasal Cannula 4.0 07/13/17 12:00 97.9 87 21 153/69 90 Nasal Cannula 5.0 07/13/17 12:00 93 07/13/17 10:00 Nasal Cannula 4.0 07/13/17 10:00 95 Nasal Cannula 4.0 07/13/17 08:00 97.9 88 20 127/71 94 Nasal Cannula 4.0 36 07/13/17 08:00 96 07/13/17 06:12 88 20 93 Nasal Cannula 4.0 36 07/13/17 05:59 96 24 88 Nasal Cannula 4.0 36 07/13/17 04:00 98.2 92 18 115/59 96 Nasal Cannula 4.0 07/13/17 03:47 93 07/13/17 01:55 84 18 92 Nasal Cannula 4.0 36 07/13/17 01:44 94 20 88 Nasal Cannula 4.0 36 07/13/17 00:00 94 07/13/17 00:00 98.1 103 18 120/66 92 Nasal Cannula 4.0 07/12/17 21:15 97.3 100 18 154/94 90 Nasal Cannula 4.0 07/12/17 20:48 98.0 69 19 120/70 98 Nasal Cannula 4.0 36 07/12/17 20:05 90 19 98 Nasal Cannula 4.0 36 07/12/17 19:55 Nasal Cannula 4.0 36 07/12/17 19:55 96 Nasal Cannula 4.0 36 07/12/17 19:54 87 18 Nasal Cannula 4.0 36 07/12/17 19:54 87 18 96 Nasal Cannula 4.0 36 07/12/17 19:30 98.0 69 17 120/70 99 Nasal Cannula 4.0 07/12/17 18:30 98.0 85 22 120/70 97 Nasal Cannula 4.0 Intake and Output 07/13/17 07/14/17 19:00 07:00 Intake Total 465.0 ml Balance 465.0 ml IV Total 465.0 ml # Bowel Movements 1 Laboratory Tests Test 07/12/17 19:28 07/13/17 05:14 Urine Color Pale yellow Urine Appearance Clear Urine pH 9 (4.5-8.0) Urine Specific [place] 1.015 (1.005-1.035) Urine Protein Negative (NEGATIVE) Urine Glucose (UA) Negative (NEGATIVE) Urine Ketones Negative (NEGATIVE) Urine Occult Blood Negative (NEGATIVE) Urine Nitrite Negative (NEGATIVE) Urine Bilirubin Negative (NEGATIVE) Urine Urobilinogen Normal MG/DL (0.0-1.0) Urine Leukocyte Esterase 1+ (NEGATIVE) H Urine RBC 0-2 /HPF (0 - 2) Urine WBC 2-4 /HPF (0 - 2) Urine Squamous Epithelial Cells Few /LPF (NONE/OCC) Urine Bacteria Few /HPF (NONE) White Blood Count 5.6 K/UL (4.8-10.8) Red Blood Count 3.59 M/UL (4.20-5.40) L Hemoglobin 10.4 G/DL (12.0-16.0) L Hematocrit 32.3 % (37.0-47.0) L Mean Corpuscular Volume 90 FL (80-99) Mean Corpuscular Hemoglobin 29.1 PG (27.0-31.0) Mean Corpuscular Hemoglobin Concent 32.3 G/DL (32.0-36.0) Red Cell Distribution Width 19.2 % (11.6-14.8) H Platelet Count 205 K/UL (150-450) Mean Platelet Volume 5.4 FL (6.5-10.1) L Neutrophils (%) (Auto) 75.3 % (45.0-75.0) H Lymphocytes (%) (Auto) 15.1 % (20.0-45.0) L Monocytes (%) (Auto) 8.4 % (1.0-10.0) Eosinophils (%) (Auto) 0.0 % (0.0-3.0) Basophils (%) (Auto) 1.2 % (0.0-2.0) Sodium Level 142 mEQ/L (135-145) Potassium Level 3.3 mEQ/L (3.4-4.9) L Chloride Level 101 mEQ/L (98-107) Carbon Dioxide Level 30 mEQ/L (20-30) Anion Gap 11 (5-15) Blood Urea Nitrogen 18 mg/dL (7-23) Creatinine 0.9 mg/dL (0.5-0.9) Estimat Glomerular Filtration Rate mL/min (>60) Glucose Level 85 mg/dL (74-106) Calcium Level 8.2 mg/dL (8.6-10.2) L Magnesium Level 1.5 mg/dL (1.7-2.5) L Thyroid Stimulating Hormone (TSH) 9.030 uIU/mL (0.300-4.500) Free Thyroxine 1.38 ng/dL (0.86-1.85) VICKIE GOMES Jul 13, 2017 17:19
[2017-07-13] MEDS ORDERED: EPOPROSTENOL IV PRN (22:00)
[2017-07-13] MEDS ORDERED: [UNRECOGNIZED DRUG - OTHER] IV PRN (22:00)
--- NOTE | 2017-07-13 23:10 | General Progress Note ---
Assessment/Plan Problem List: (1) Acute and chronic respiratory failure with hypoxia ICD Codes: J96.21 - Acute and chronic respiratory failure with hypoxia SNOMED: 403675317, 625324286 (2) Syncope ICD Codes: R55 - Syncope and collapse SNOMED: 118328243 (3) Pulmonary hypertension Assessment & Plan: Severe, WHO group 1 ICD Codes: I27.2 - Other secondary pulmonary hypertension SNOMED: 95410585 (4) Hypothyroidism ICD Codes: E03.9 - Hypothyroidism, unspecified SNOMED: 01970430 Status: stable Assessment/Plan Syncopal episode possible 2/2 low cardiac output state and severe RV dysfuction in setting of severe pulm HTN Pulmonology and cardiology consulted Empiric zosyn per pulm F/u CT angio chest to r/o PE TTE reviewed U/S BLE venous duplex neg for DVT Cont home meds including pt's Epoprostenol via PICC, Sildenafil 20mg TID, Lasix 40mg PO BID + KCl supplementation O2 via NC Duonebs PRN Pain control, supportive care, bowel regimen DVT Prophylaxis: SCD, HSQ Code Status: Full Hospital Classification Declaration: Based on this initial evaluation, and depending on the patient's clinical course, I anticipate that this patient will require hospitalization for 2-3 days for SOB, syncope and close respiratory/ hemodynamic monitoring. Disposition: Once the patient is stable to leave the hospital, I anticipate the patient will likely be discharged to the following environment: home with HH vs SNF I spent 45 minutes on this patient's case, and 25 minutes were dedicated to counseling and/or care coordination. Discussed with patient/family, nursing staff, SW/CM, pulmonology regarding clinical status, treatment course, and disposition planning. D/w pt's cardiology Dr. Vila who states that if PE is ruled out to transfer to [facility] for cardiac cath. Time of note may not reflect time of encounter. Subjective Date patient seen: Jul 13, 2017 Time patient seen: 14:00 ROS Limited/Unobtainable: No Constitutional: Reports: no symptoms HEENT: Reports: no symptoms Cardiovascular: Reports: syncope Respiratory: Reports: shortness of breath Gastrointestinal/Abdominal: Reports: no symptoms Genitourinary: Reports: no symptoms Neurologic/Psychiatric: Reports: no symptoms Endocrine: Reports: no symptoms Hematologic/Lymphatic: Reports: no symptoms Allergies: Coded Allergies: No Known Allergies (Unverified , 07/12/17) All Systems: reviewed and negative except above Subjective No acute o/n events TTE showed severe pulm HTN U/S LE duplex neg for DVT. Given D-dimer elevated, CT angio chest ordered to r/ o PE Pt doing well. When she got up to bathroom today felt lightheaded but no further syncopal episodes. SOB stable. O2 sats stable on usual 4L via NC Denies chest pain, abd pain, f/c, n/v, d/c Objective Last 24 Hour Vital Signs Date Time Temp Pulse Resp B/P (MAP) Pulse Ox O2 Delivery O2 Flow Rate FiO2 07/13/17 20:00 97.7 94 20 148/86 91 Nasal Cannula 07/13/17 19:35 87 18 97 Nasal Cannula 4.0 07/13/17 19:26 94 18 96 Nasal Cannula 4.0 07/13/17 19:26 Nasal Cannula 4.0 07/13/17 19:26 96 Nasal Cannula 4.0 07/13/17 16:00 97.7 58 20 151/88 100 Nasal Cannula 4.0 07/13/17 16:00 102 07/13/17 13:23 84 20 92 Nasal Cannula 4.0 07/13/17 13:15 88 18 91 Nasal Cannula 4.0 07/13/17 12:00 97.9 87 21 153/69 90 Nasal Cannula 5.0 07/13/17 12:00 93 07/13/17 10:00 Nasal Cannula 4.0 07/13/17 10:00 95 Nasal Cannula 4.0 07/13/17 08:00 97.9 88 20 127/71 94 Nasal Cannula 4.0 36 07/13/17 08:00 96 07/13/17 06:12 88 20 93 Nasal Cannula 4.0 36 07/13/17 05:59 96 24 88 Nasal Cannula 4.0 36 07/13/17 04:00 98.2 92 18 115/59 96 Nasal Cannula 4.0 07/13/17 03:47 93 07/13/17 01:55 84 18 92 Nasal Cannula 4.0 36 07/13/17 01:44 94 20 88 Nasal Cannula 4.0 36 07/13/17 00:00 94 07/13/17 00:00 98.1 103 18 120/66 92 Nasal Cannula 4.0 Intake and Output 07/13/17 07/14/17 19:00 07:00 Intake Total 972.5 ml Balance 972.5 ml Intake Oral 480 ml IV Total 492.5 ml # Bowel Movements 5 Laboratory Tests 07/13/17 05:14: White Blood Count 5.6, Red Blood Count 3.59L, Hemoglobin 10.4L, Hematocrit 32.3L , Mean Corpuscular Volume 90, Mean Corpuscular Hemoglobin 29.1, Mean Corpuscular Hemoglobin Concent 32.3, Red Cell Distribution Width 19.2H, Platelet Count 205, Mean Platelet Volume 5.4L, Neutrophils (%) (Auto) 75.3H, Lymphocytes (%) (Auto) 15.1L, Monocytes (%) (Auto) 8.4, Eosinophils (%) (Auto) 0.0, Basophils (%) (Auto) 1.2, D-Dimer 1679H, Sodium Level 142, Potassium Level 3.3L, Chloride Level 101, Carbon Dioxide Level 30, Anion Gap 11, Blood Urea Nitrogen 18, Creatinine 0.9, Estimat Glomerular Filtration Rate , Glucose Level 85, Calcium Level 8.2L, Magnesium Level 1.5L, Thyroid Stimulating Hormone (TSH) 9.030H, Free Thyroxine 1.38 Height (Feet): 5 Height (Inches): 3.00 Weight (Pounds): 130 Objective General: alert, cooperative, no distress, appears stated age Head: normocephalic, without obvious abnormality, atraumatic Eyes: conjunctivae/corneas clear. PERRL, EOM's intact Throat: lips, mucosa, and tongue normal. MMM Neck: supple, symmetrical, trachea midline, and +JVD Lungs: decreased breath sounds b/l Heart: regular rate and rhythm, S1, S2 normal, no murmur, click, rub or gallop Abdomen: soft, non-tender, non-distended, bowel sounds normal; Small umbilical hernia and moderate size right inguinal hernia Extremities: extremities normal, atraumatic, no cyanosis, 1+ pitting edema BLE below knees Pulses: 2+ and symmetric Skin: skin color, texture, turgor normal; no rashes or lesions Neurologic: grossly normal, no focal deficits Reyna Russell M.D. Jul 13, 2017 23:10
[2017-07-14] VITALS (7 sets, daily range): BP systolic 134–155; BP diastolic 70–86
[2017-07-14] MEDS: Albuterol/Ipratropium 3ml neb HHN SCH ×4 (01:39→19:30)
[2017-07-14] MEDS ORDERED: Loperamide 2mg cap ORAL PRN (01:45)
--- NOTE | 2017-07-14 05:00 | Consultation ---
DATE OF CONSULTATION: 07/13/2017 CARDIOLOGY CONSULTATION CONSULTING PHYSICIAN: Demond Chu M.D. REFERRING PHYSICIAN: Frederick Ruiz M.D. Reason For Consultation: Shortness of breath in a patient with pulmonary hypertension. History Of Present Illness: The patient is a 77-year-old, lady with primary pulmonary hypertension who presented to the emergency room complaining of shortness of breath. She called 911. She is usually on home oxygen for pulmonary hypertension and saturation was 140 nasal cannula on arrival of the paramedics. In the emergency room, the patient was on 100% oxygen and felt much further than that. The patient denies any chest pain. No nausea, or vomiting, but she states that she felt like she might pass out. Past Medical History: History of hypertension and history of pulmonary hypertension. PAST SURGICAL HISTORY: None. FAMILY HISTORY: Noncontributory. SOCIAL HISTORY: She lives at home. Does not smoke or drink alcohol. Review Of Systems: Review of systems was performed and was negative other than what was mentioned in the history of present illness. PHYSICAL EXAMINATION: Vital Signs: Blood pressure is 151/88, pulse 102, respirations 20, and temperature 97.7 degrees. HEAD AND NECK: Shows positive JVD. LUNGS: Decreased breath sounds with coarse rhonchi. CARDIOVASCULAR: Shows regular S1 and S2 with soft systolic murmur. ABDOMEN: Soft and nontender. EXTREMITIES: No pitting edema. Laboratory And Diagnostic Data: White count of 5.2, hemoglobin 10.5, hematocrit 32.3, and platelets of 205,000. Sodium 142, potassium 3.3, BUN of 18, creatinine 0.9, and glucose of 85. Troponin is negative. TSH is 9. ASSESSMENT AND PLAN: 1. Sudden onset of shortness of breath. This is a worsening of patient's pulmonary hypotension. The patient also has chronic obstructive pulmonary disease. Her BNP however is only mildly elevated. We will get an echocardiogram to evaluate severity of pulmonary hypertension. In the meantime, the patient is on Revatio 20 mg by mouth 3 times daily as well as IV antibiotics. 2. Hypothyroidism, on Synthroid. 3. Hypertension, on Lasix at this time. Thank you very much, Dr. Ruiz, for allowing me to participate in the care of this patient. Please do not hesitate to contact me for any questions regarding my evaluation. Demond Chu M.D. DR: CARISSA JOB#: [id number] CC:
[2017-07-14] MEDS: Piperacillin/Tazobactam 3.375 GM in NS 110 ML IVPB SCH ×3 (05:48→22:00)
[2017-07-14] MEDS ORDERED: HYDROCHLOROTHIA25 MG ORAL (07:55)
[2017-07-14] MEDS: Heparin 5000 units/ml inj SUBQ SCH ×2 (08:24→20:33)
[2017-07-14] MEDS: Furosemide 40mg tab ORAL SCH (08:25)
[2017-07-14] MEDS: Revatio 20mg tab ORAL SCH ×3 (08:25→17:02)
[2017-07-14] MEDS: Docusate 100mg cap ORAL SCH ×2 (08:25→20:08)
[2017-07-14 08:35] LABS: MEAN CORPUSCULAR HEMOGLOBIN 29.7 PG (27.0-31.0); MEAN CORPUSCULAR VOLUME 90 FL (80-99); MEAN PLATELET VOLUME 5.5 FL (6.5-10.1); PLATELET COUNT 229 K/UL (150-450); RED BLOOD COUNT 4.05 M/UL (4.20-5.40); RED CELL DISTRIBUTION WIDTH 19.2 % (11.6-14.8); WHITE BLOOD COUNT 8.1 K/UL (4.8-10.8)
--- NOTE | 2017-07-14 08:45 | Diagnostic Imaging Report ---
ndication: Shortness of breath Technique: IV administration nonionic contrast. Spiral acquisitions obtained from the lung bases to the lung apices. Multiplanar and 3-D reconstructions were generated. Total dose length product by 94 mGycm. CTDIvol(s) 12, 63, 15 mGy. Dose reduction achieved using automated exposure control Comparison: None Findings: There is good quality opacification of the pulmonary arteries. No intraluminal filling defects or other findings to suggest acute pulmonary embolus demonstrated. No evidence of thoracic aneurysm or dissection. Normal caliber pulmonary arteries. No evidence of right ventricular dilatation. There is mild right atrial dilatation as well as enlargement of the inferior vena cava and hepatic veins. Incidentally noted is stenosis of the origin of the celiac axis. There are large bilateral pleural effusions. These results in compressive atelectasis of a significant portion of the lower lobes. There is also diffuse mild groundglass opacity throughout the lungs. More of focal area of reticular opacity is seen in the inferior right upper lobe. More focal groundglass opacities are also seen centrally within the left upper lobe. No masses. No dense consolidation demonstrated. The mediastinum is diffusely edematous. This reduces inherent contrast resolution. No definite hilar or mediastinal mass or adenopathy demonstrated. There is also generalized edema of the subcutaneous fat. No axillary or chest wall mass or adenopathy demonstrated. The included upper abdominal anatomy is remarkable for the presence of multiple cysts within the liver. There is ascites fluid. The bones are unremarkable except for degenerative spondylosis changes. Impression: No evidence of acute pulmonary embolus or other acute thoracic vascular pathology Diffuse pulmonary groundglass, as well as more focal groundglass opacities.. This is nonspecific, but suspect on the basis of mild pulmonary edema sulci in compressive atelectatic changes at the lung bases. Other possibilities including infectious or noninfectious inflammatory disease also possibilities. Somewhat mosaic appearance also raises possibility of COPD Reticular opacity in the inferior right upper lobe, nonspecific, could represent an area of fibrosis Bilateral large pleural effusions, resulting in compressive atelectatic changes at the lung bases Evidence of central venous hypertension, with right atrial dilatation, distention of the inferior vena cava and hepatic veins In addition to the pleural fluid and pulmonary changes, there are other manifestation of anasarca, including generalized edema of the subcutaneous, mediastinal, and abdominal fat, small amount of ascites fluid, likely related to above Multiple hepatic cysts Incidental finding of degenerative spondylosis This agrees with the preliminary interpretation provided overnight by [facility] telerad[facility] service. The CT scanner at [facility] is accredited by the [employer] and the scans are performed using protocols designed to limit radiation exposure to as low as reasonably achievable to attain images of sufficient resolution adequate for diagnostic evaluation.
[2017-07-14 08:52] LABS: TROPONIN I < 0.30 ng/mL (<=0.30)
[2017-07-14 08:56] LABS: ANION GAP 16 (5-15); CALCIUM 8.9 mg/dL (8.6-10.2); CARBON DIOXIDE 26 mEQ/L (20-30); CHLORIDE 98 mEQ/L (98-107); CREATININE 1.1 mg/dL (0.5-0.9); HEMOLYSIS 7; MAGNESIUM 2.1 mg/dL (1.7-2.5); POTASSIUM 3.6 mEQ/L (3.4-4.9); SODIUM 140 mEQ/L (135-145)
[2017-07-14] MEDS ORDERED: Dyna-Hex 2% Top Sol 2oz TOPIC SCH (09:00)
--- NOTE | 2017-07-14 09:44 | Pulmonology Progress Note ---
Assessment/Plan Problems: (1) Acute and chronic respiratory failure with hypoxia (2) COPD (chronic obstructive pulmonary disease) (3) Hypothyroidism (4) CVA in 2007 (5) HTN (hypertension) Assessment/Plan no new events all noted respiratory treatment titrate fio2 check cultures check electrolytes dvt prophylaxis all notes and labs reviewed Subjective ROS Limited/Unobtainable: No Allergies: Coded Allergies: No Known Allergies (Unverified , 07/12/17) Objective Last 24 Hour Vital Signs Date Time Temp Pulse Resp B/P (MAP) Pulse Ox O2 Delivery O2 Flow Rate FiO2 07/14/17 08:35 97.2 93 18 139/85 95 Nasal Cannula 3.0 07/14/17 08:22 97.2 93 139/85 07/14/17 07:31 77 20 98 Nasal Cannula 4.0 36 07/14/17 07:26 84 20 94 Nasal Cannula 4.0 36 07/14/17 07:26 Nasal Cannula 4.0 07/14/17 07:26 94 Nasal Cannula 4.0 07/14/17 04:00 93 07/14/17 04:00 97.3 93 20 134/73 93 Nasal Cannula 3.0 07/14/17 01:49 86 20 99 Nasal Cannula 4.0 36 07/14/17 01:39 98 22 90 Nasal Cannula 4.0 36 07/14/17 00:00 101 07/13/17 23:52 98.1 100 18 140/76 92 Nasal Cannula 07/13/17 20:00 88 07/13/17 20:00 97.7 94 20 148/86 91 Nasal Cannula 07/13/17 19:35 87 18 97 Nasal Cannula 4.0 07/13/17 19:26 94 18 96 Nasal Cannula 4.0 07/13/17 19:26 Nasal Cannula 4.0 07/13/17 19:26 96 Nasal Cannula 4.0 07/13/17 16:00 97.7 58 20 151/88 100 Nasal Cannula 4.0 07/13/17 16:00 102 07/13/17 13:23 84 20 92 Nasal Cannula 4.0 07/13/17 13:15 88 18 91 Nasal Cannula 4.0 07/13/17 12:00 97.9 87 21 153/69 90 Nasal Cannula 5.0 07/13/17 12:00 93 07/13/17 10:00 Nasal Cannula 4.0 07/13/17 10:00 95 Nasal Cannula 4.0 Intake and Output 07/14/17 07/15/17 19:00 07:00 Intake Total 55.0 ml Balance 55.0 ml IV Total 55.0 ml General Appearance: WD/WN HEENT: normocephalic, atraumatic Respiratory/Chest: chest wall non-tender, lungs clear Cardiovascular: normal peripheral pulses, normal rate Abdomen: normal bowel sounds, non distended Extremities: no cyanosis, no clubbing Microbiology Date/Time Source Procedure Growth Status 07/12/17 17:05 Blood Blood Culture - Preliminary NO GROWTH AFTER 24 HOURS Resulted 07/12/17 16:40 Blood Blood Culture - Preliminary NO GROWTH AFTER 24 HOURS Resulted Laboratory Tests 07/14/17 07:20: White Blood Count 8.1, Red Blood Count 4.05L, Hemoglobin 12.0, Hematocrit 36.3L , Mean Corpuscular Volume 90, Mean Corpuscular Hemoglobin 29.7, Mean Corpuscular Hemoglobin Concent 33.0, Red Cell Distribution Width 19.2H, Platelet Count 229, Mean Platelet Volume 5.5L, Neutrophils (%) (Auto) , Lymphocytes (%) (Auto) , Monocytes (%) (Auto) , Eosinophils (%) (Auto) , Basophils (%) (Auto) , Neutrophils % (Manual) [Pending], Lymphocytes % (Manual) [Pending], Platelet Estimate [Pending], Platelet Morphology [Pending], Sodium Level 140, Potassium Level 3.6, Chloride Level 98, Carbon Dioxide Level 26, Anion Gap 16H, Blood Urea Nitrogen 16, Creatinine 1.1H, Estimat Glomerular Filtration Rate , Glucose Level 103, Calcium Level 8.9, Magnesium Level 2.1, Troponin I < 0.30, Pro-B-Type Natriuretic Peptide 1424H Current Medications Medications (Trade) Dose Ordered Sig/Maryann Route PRN Reason Start Time Stop Time Status Last Admin Dose Admin Acetaminophen (Tylenol) 650 mg Q4H PRN ORAL Mild Pain (Pain Scale 1-3) 07/12/17 18:30 08/11/17 18:29 Albuterol/ Ipratropium (DuoNeb 0.5-3(2.5)mg/3ml) 3 ml Q4H PRN HHN Shortness of Breath 07/12/17 18:30 07/17/17 18:29 Albuterol/ Ipratropium (DuoNeb 0.5-3(2.5)mg/3ml) 3 ml Q6HRT HHN 07/12/17 19:00 07/17/17 18:59 07/14/17 07:29 Bisacodyl (Dulcolax) 10 mg DAILYPRN PRN RECTAL Constipation 07/12/17 18:30 08/11/17 18:29 Chlorhexidine Gluconate (Gertrude-Hex 2%) 1 applic DAILY TOPIC 07/14/17 09:00 08/13/17 08:59 07/14/17 08:26 Dextrose (Dextrose 50%) STAT PRN IV Hypoglycemia 07/12/17 18:30 08/11/17 18:29 Docusate Sodium (Colace) 100 mg EVERY 12 HOURS ORAL 07/12/17 21:00 08/11/17 20:59 Furosemide (Lasix) 40 mg BID ORAL 07/13/17 09:00 08/12/17 08:59 07/14/17 08:25 Heparin Sodium (Porcine) (Heparin 5000 units/ml) 5,000 units EVERY 12 HOURS SUBQ 07/12/17 21:00 08/11/17 20:59 07/14/17 08:24 Levothyroxine Sodium (Synthroid) 112 mcg DAILY@0630 ORAL 07/14/17 06:30 08/13/17 06:29 07/14/17 05:47 Loperamide HCl (Imodium) 2 mg Q4H PRN ORAL Diarrhea 07/14/17 01:45 08/13/17 01:44 Magnesium Hydroxide (Mom) 30 ml HSPRN PRN ORAL Constipation 07/12/17 21:00 08/11/17 20:59 Ondansetron HCl (Zofran) 4 mg Q6H PRN IVP Nausea & Vomiting 07/12/17 18:30 08/11/17 18:29 Patient Own Medication (Patient's Own Med) 1 ea DAILYPRN PRN IV Cartridge exchange 07/13/17 22:00 08/12/17 21:59 Piperacillin Sod/ Tazobactam Sod 3.375 gm/Sodium Chloride 110 ml @ 27.5 mls/hr EVERY 8 HOURS IVPB 07/12/17 22:00 07/19/17 21:59 07/14/17 05:48 Polyethylene Glycol (Miralax) 17 gm DAILYPRN PRN ORAL Constipation 07/12/17 18:30 08/11/17 18:29 Potassium Chloride (K-Dur) 40 meq TWICE A DAY ORAL 07/13/17 18:00 08/12/17 17:59 07/14/17 08:25 Promethazine HCl/ Codeine (Phenergan with Codeine) 5 ml Q4H PRN ORAL For Cough 07/12/17 19:00 08/11/17 18:59 Sildenafil Citrate (Revatio) 20 mg TID ORAL 07/13/17 09:00 08/12/17 08:59 07/14/17 08:25 HALEY COX Jul 14, 2017 09:44
[2017-07-14 09:56] LABS: ANISOCYTOSIS 1+; BAND NEUTROPHILS % (MANUAL) 0 % (0-8); BASOPHILS % (MANUAL) 0 % (0-2); EOSINOPHILS % (MANUAL) 0 % (0-3); LYMPHOCYTES % (MANUAL) 16 % (20-45); NEUTROPHILS % (MANUAL) 82 % (45-75); PLATELET ESTIMATE ADEQUATE; PLATELET MORPHOLOGY NORMAL; TOTAL CELLS COUNTED 100
--- NOTE | 2017-07-14 12:59 | Diagnostic Imaging Report ---
APPROVED REPORT CPT Code: 84784 Present Symptoms Shortness of breath BILATERAL: Imaging reveals a patent deep venous system bilaterally. There is no evidence of thrombus within the femoral, popliteal or tibial segments. The greater saphenous veins are also within normal limits. Doppler indicates normal spontaneous flow within these segments. Incidental finding: Enlarged bakers cyst noted at the right popliteal vein level, measuring (4.1 cm x 2.0 cm) and left popliteal vein level, measuring (5.1 cm x 2.0 cm).
--- NOTE | 2017-07-14 13:59 | Cardiac Electrophysiology PN ---
Assessment/Plan Assessment/Plan 1. Sudden onset of shortness of breath. Worsening of patient's pulmonary hypotension. Also has chronic obstructive pulmonary disease. Her BNP is only mildly elevated. Echocardiogram showed EF65%. Continue Revatio 20 mg by mouth 3 times daily as well as IV antibiotics. 2. Hypothyroidism, on Synthroid. 3. Hypertension, on Lasix DW RN Subjective Subjective Comfortable. In NAD. No chest pain. SOB better. Objective Last 24 Hour Vital Signs Date Time Temp Pulse Resp B/P (MAP) Pulse Ox O2 Delivery O2 Flow Rate FiO2 07/14/17 12:00 94 07/14/17 12:00 97.5 77 18 139/70 98 Nasal Cannula 07/14/17 08:35 97.2 93 18 139/85 95 Nasal Cannula 3.0 07/14/17 08:22 97.2 93 139/85 07/14/17 08:00 94 07/14/17 07:31 77 20 98 Nasal Cannula 4.0 36 07/14/17 07:26 84 20 94 Nasal Cannula 4.0 36 07/14/17 07:26 Nasal Cannula 4.0 07/14/17 07:26 94 Nasal Cannula 4.0 07/14/17 04:00 93 07/14/17 04:00 97.3 93 20 134/73 93 Nasal Cannula 3.0 07/14/17 01:49 86 20 99 Nasal Cannula 4.0 36 07/14/17 01:39 98 22 90 Nasal Cannula 4.0 36 07/14/17 00:00 101 07/13/17 23:52 98.1 100 18 140/76 92 Nasal Cannula 07/13/17 20:00 88 07/13/17 20:00 97.7 94 20 148/86 91 Nasal Cannula 07/13/17 19:35 87 18 97 Nasal Cannula 4.0 07/13/17 19:26 94 18 96 Nasal Cannula 4.0 07/13/17 19:26 Nasal Cannula 4.0 07/13/17 19:26 96 Nasal Cannula 4.0 07/13/17 16:00 97.7 58 20 151/88 100 Nasal Cannula 4.0 07/13/17 16:00 102 Intake and Output 07/14/17 07/15/17 19:00 07:00 Intake Total 82.5 ml Balance 82.5 ml IV Total 82.5 ml Laboratory Tests Test 07/14/17 07:20 White Blood Count 8.1 K/UL (4.8-10.8) Red Blood Count 4.05 M/UL (4.20-5.40) L Hemoglobin 12.0 G/DL (12.0-16.0) Hematocrit 36.3 % (37.0-47.0) L Mean Corpuscular Volume 90 FL (80-99) Mean Corpuscular Hemoglobin 29.7 PG (27.0-31.0) Mean Corpuscular Hemoglobin Concent 33.0 G/DL (32.0-36.0) Red Cell Distribution Width 19.2 % (11.6-14.8) H Platelet Count 229 K/UL (150-450) Mean Platelet Volume 5.5 FL (6.5-10.1) L Neutrophils (%) (Auto) % (45.0-75.0) Lymphocytes (%) (Auto) % (20.0-45.0) Monocytes (%) (Auto) % (1.0-10.0) Eosinophils (%) (Auto) % (0.0-3.0) Basophils (%) (Auto) % (0.0-2.0) Differential Total Cells Counted 100 Neutrophils % (Manual) 82 % (45-75) H Lymphocytes % (Manual) 16 % (20-45) L Monocytes % (Manual) 2 % (1-10) Eosinophils % (Manual) 0 % (0-3) Basophils % (Manual) 0 % (0-2) Band Neutrophils 0 % (0-8) Platelet Estimate Adequate Platelet Morphology Normal Anisocytosis 1+ Sodium Level 140 mEQ/L (135-145) Potassium Level 3.6 mEQ/L (3.4-4.9) Chloride Level 98 mEQ/L (98-107) Carbon Dioxide Level 26 mEQ/L (20-30) Anion Gap 16 (5-15) H Blood Urea Nitrogen 16 mg/dL (7-23) Creatinine 1.1 mg/dL (0.5-0.9) H Estimat Glomerular Filtration Rate mL/min (>60) Glucose Level 103 mg/dL (74-106) Calcium Level 8.9 mg/dL (8.6-10.2) Magnesium Level 2.1 mg/dL (1.7-2.5) Troponin I < 0.30 ng/mL (<=0.30) Pro-B-Type Natriuretic Peptide 1424 pg/mL (0-450) H Microbiology Date/Time Source Procedure Growth Status 07/12/17 17:05 Blood Blood Culture - Preliminary NO GROWTH AFTER 24 HOURS Resulted 07/12/17 16:40 Blood Blood Culture - Preliminary NO GROWTH AFTER 24 HOURS Resulted Objective HEAD AND NECK: Shows positive JVD. LUNGS: Decreased breath sounds with coarse rhonchi. CARDIOVASCULAR: Shows regular S1 and S2 with soft systolic murmur. ABDOMEN: Soft and nontender. EXTREMITIES: No pitting edema. VICKIE GOMES Jul 14, 2017 13:59
[2017-07-14] MEDS ORDERED: TYLENOL325 MG ORAL (15:23)
[2017-07-14] MEDS ORDERED: BISACODYL10 M1 RC (15:24)
[2017-07-14] MEDS ORDERED: COLACE100 MG ORAL (15:26)
[2017-07-14] MEDS ORDERED: HEPARIN SO5000 UNIT2 SUBQ (15:26)
[2017-07-14] MEDS ORDERED: FUROSEMIDE40 MG/4 ML IV (15:26)
[2017-07-14] MEDS ORDERED: DUONEB 0.5-3(2.53 ML HHN (15:27)
[2017-07-14] MEDS ORDERED: LOPERAMIDE2 MG PO (15:28)
[2017-07-14] MEDS ORDERED: SYNTHROID112 MCG ORAL (15:28)
[2017-07-14] MEDS ORDERED: MILK OF MA400 MG/51 ORAL (15:29)
[2017-07-14] MEDS ORDERED: ZOFRAN 4 MG4 MG/2 ML IV (15:30)
[2017-07-14] MEDS ORDERED: ZOSYN 3.373.375 GM/1 IVPB (15:31)
[2017-07-14] MEDS ORDERED: MIRALAX17 G2 ORAL (15:31)
[2017-07-14] MEDS ORDERED: SILDENAFIL20 MG ORAL (15:32)
[2017-07-14] MEDS ORDERED: K-TAB10 MEQ PO (15:32)
[2017-07-14] MEDS ORDERED: PROMETH-CODEIN 65 ML PO (15:33)
[2017-07-14] MEDS ORDERED: EPOPROSTENOL IV (15:35)
--- NOTE | 2017-07-16 11:50 | Discharge Summary ---
Discharge Summary Hospital Course Date of Admission Jul 12, 2017 at 17:43 Date of Discharge Jul 14, 2017 at 22:30 Admitting Diagnosis SOB, syncope Reason for Hospitalization: syncope, SOB HPI 77 yo female with pmh of pulmonary HTN on 4L O2 via NC, hypothyroidism who presents with acute onset SOB. Pt states she had an appt with her pulm HTN Dr. Vila at [facility] today. She was walking in parking lot when she suddenly felt SOB and passed out. She has had this happen a few times before and they said it was related to her pulmonary HTN. No reports of head trauma, chest pain, f/c, n/v, d /c, abd pain, cough. No recent sick contacts, trauma or travel. Per EMS O2 dropped on her usual 4 L nasal cannula. Pt states pulm HTN diagnosed in Oct 2016 and she had cardiac cath at the time. She has been under the care of Dr. Vila In ED, pt on 100% NRB satting well. SOB improved. No fever. Labs showed no leukocytosis. CXR w/ no obvious infiltrate. BNP and trop unremarkable. Pt given levaquin and 500mL NS bolus in ED. Consultations Pulmonology, Cardiology Hospital Course Pt was admitted and seen by pulmonology and cardiology. Syncopal episode possible 2/2 low cardiac output state and severe RV dysfunction in setting of severe pulm HTN. Pt was ruled out for DVT/PE with U/S venous duplex which was neg for DVT and CT angio chest which showed no e/o PE. TTE showed severe pulm HTN. Patient was discussed w/ pt's shake sawyer Dr. Vila who recommended transfer to [facility] for cardiac cath. Discharge physical exam General: alert, cooperative, no distress, appears stated age Head: normocephalic, without obvious abnormality, atraumatic Eyes: conjunctivae/corneas clear. PERRL, EOM's intact Throat: lips, mucosa, and tongue normal. MMM Neck: supple, symmetrical, trachea midline, and +JVD Lungs: decreased breath sounds b/l Heart: regular rate and rhythm, S1, S2 normal, no murmur, click, rub or gallop Abdomen: soft, non-tender, non-distended, bowel sounds normal; Small umbilical hernia and moderate size right inguinal hernia Extremities: extremities normal, atraumatic, no cyanosis, 1+ pitting edema BLE below knees Pulses: 2+ and symmetric Skin: skin color, texture, turgor normal; no rashes or lesions Neurologic: grossly normal, no focal deficits Discharge Medications Continued Medications: Acetaminophen (Tylenol) 325 Mg Tablet 650 MG ORAL Q4HR PRN for Mild Pain (Pain Scale 1-3), #30 TAB 0 Refills Bisacodyl (Bisacodyl) 10 Mg Supp.rect 10 MG RC DAILY PRN for Constipation, SUPP Docusate Sodium* (Colace*) 100 Mg Capsule 100 MG ORAL TWICE A DAY, CAP Furosemide* (Lasix*) 40 Mg/4 Ml Solution 40 MG IV EVERY 12 HOURS, VIAL Heparin Sod (Porcine) (Heparin Sodium*) 5 000/1 Ml Vial 5000 UNITS SUBQ EVERY 12 HOURS, VIAL Ipratropium/Albuterol Sulfate (DuoNeb 0.5-3(2.5)mg/3ml) 3 Ml Ampul.neb 3 ML HHN EVERY 4 HOURS PRN for Shortness of Breath, EA Levothyroxine Sodium* (Synthroid*) 112 Mcg Tablet 112 MCG ORAL BEFORE BREAKFAST, TAB Take in the morning on an empty stomach, at least 30 minutes before food. Loperamide Hcl (Loperamide) 2 Mg Capsule 2 MG PO EVERY 4 HOURS PRN for Diarrhea, CAP Magnesium Hydroxide* (Milk Of Magnesia*) 400 Mg/5 Ml Oral.susp 30 ML ORAL BEDTIME PRN for Constipation, ML Ondansetron* (Zofran*) 4 Mg/2 Ml Vial 4 MG IV Q6H PRN for Nausea & Vomiting, VIAL Luveusnyegts-Qzik-Uhgmxmwo,Iso (Zosyn 3.375 Gm Pre Mix-Bag) 3.375 Gm/50 Ml Froz.piggy 3.375 GM IVPB EVERY 8 HOURS, BAG Polyethylene Glycol 3350* (Miralax*) 17 Gm Powd.pack 17 GM ORAL DAILY PRN for Constipation, PACKET Potassium Chloride (K-Tab) 10 Meq Tablet.er 40 MEQ PO TWICE A WEEK, TAB Promethazine HCl/Codeine (Prometh-Codein 6.25-10 mg/5 ml) 5 Ml Syrup 5 ML PO EVERY 4 HOURS PRN for For Cough, ML Sildenafil Citrate (Sildenafil) 20 Mg Tablet 20 MG ORAL THREE TIMES A DAY, TAB 0 Refills Discontinued Medications: Epoprostenol Sodium (Arginine) (Veletri 0.5 Mg Vial) 0.5 Mg Vial 0.5 MG IV, VIAL Furosemide* (Lasix*) 40 Mg Tablet 40 MG ORAL DAILY, TAB Gabapentin* (Gabapentin*) 300 Mg Capsule 300 MG ORAL BEDTIME, CAP Hydrochlorothiazide* (Hydrochlorothiazide*) 25 Mg Tablet 25 MG ORAL DAILY, TAB Levothyroxine Sodium (Synthroid) 137 Mcg Tablet 137 MCG ORAL DAILY, TAB Take in the morning on an empty stomach, at least 30 minutes before food. Ondansetron Odt* (Zofran Odt*) 8 Mg Tab.rapdis 8 MG ORAL Q6H PRN for Nausea & Vomiting, #30 TAB Sildenafil Citrate (Sildenafil) 20 Mg Tablet 20 MG ORAL, TAB 0 Refills Discharge Condition Upon Discharge: stable Discharge Disposition Patient was discharged to [facility] for cardiac cath. Discharge Diagnoses: (1) Syncope (2) Acute and chronic respiratory failure with hypoxia (3) Hypokalemia (4) Inguinal and umbilical hernia (5) CVA in 2007 (6) Hypothyroidism Reyna Russell M.D. Jul 16, 2017 11:50
--- NOTE | 2017-07-22 10:38 | Cardiology Report ---
APPROVED REPORT EXAM: Two-dimensional and M-mode echocardiogram with Doppler and color Doppler. INDICATION SOB M-Mode DIMENSIONS IVSd1.7 (0.7-1.1cm)Left Atrium (MM)3.6 (1.6-4.0cm) LVDd3.3 (3.5-5.6cm)Aortic Root2.4 (2.0-3.7cm) PWd1.0 (0.7-1.1cm)Aortic Cusp Exc.1.6 (1.5-2.0cm) LVDs2.2 (2.5-4.0cm) PWs1.1 cm Normal left ventricular chamber size, systolic function and wall motion. Left ventricular ejection fraction estimated to be 60-65%. Moderate left ventricular hypertrophy. Smallanterior pericardial effusion. Right cardiac chamber sizes are within normal limits. Moderate right atrial and mild right ventricular enlargement by 2D. D-Shaped left ventricle indicating RV overload. Focal aortic valve sclerosis with adequate cusp excursion. Thickened mitral valve leaflets with normal excursion. Mild mitral annulus and aortic root calcification. Pulmonic valve not well visualized. Normal tricuspid valve structure. IVC is normal in size at 2.0cm and minimal collapse with respiration indicate increased RA pressure. A color flow and spectral Doppler study was performed and revealed: No aortic regurgitation. No mitral regurgitation. Mitral diastolic velocities suggest reduced left ventricular relaxation c/w diastolic dysfunction grade 1. Moderate tricuspid regurgitation. Tricuspid systolic velocities suggests peak right ventricular systolic pressure of 91 mmHg Consistent with severe pulmonary hypertension.
== END 2017-07-14 22:30 | disposition short-term general hospital (02) | DRG 189 ==
LOC: EDBD 16:08 → EMR 16:45 → 2E 17:43 → EDBEDREQ 18:57
DX: J96.21 Acute and chronic respiratory failure with hypoxia (principal); I27.2 Other secondary pulmonary hypertension; Z99.81 Dependence on supplemental oxygen; E83.42 Hypomagnesemia; J44.9 Chronic obstructive pulmonary disease, unspecified; D64.9 Anemia, unspecified; E03.9 Hypothyroidism, unspecified; R55 Syncope and collapse; K42.9 Umbilical hernia without obstruction or gangrene; K40.90 Unilateral inguinal hernia, without obstruction or gangrene, not specified as recurrent; E78.5 Hyperlipidemia, unspecified; E87.6 Hypokalemia; Z86.73 Personal history of transient ischemic attack (TIA), and cerebral infarction without residual deficits; T50.1X5A Adverse effect of loop [high-ceiling] diuretics, initial encounter; Y92.89 Other specified places as the place of occurrence of the external cause
CPT/HCPCS: 36415; 71010; 71275; 80048; 80053; 81003; 82550; 82553; 83605; 83735; 83880; 84439; 84443; 84484; 85007; 85025; 85379; 87040; 93005; 93306; 93970; 94640; 94664; 94760; 99285; J7620; J8499